=== PATIENT | male | born 1950 | race Caucasian/White ===

== ENCOUNTER 2020-12-23 14:21 | Emergency (ER) | payer MEDICARE ==
[~2020-12-23] VITALS: Ht 177.8 cm; Wt 95.0 kg
[2020-12-23] MEDS ORDERED: LIPITOR40 M1 PO (16:20)
[2020-12-23] MEDS ORDERED: ASPIRIN 81 LOW81 MG PO (16:21)
[2020-12-23] MEDS ORDERED: ASPIRIN 8181 MG PO (16:24)
[2020-12-23] MEDS ORDERED: PERCOCET 5/325M1 TAB PO (19:29)
[2020-12-23 19:40] VITALS: BP 129/64
== END 2020-12-23 19:40 | disposition home or self-care (01) ==
LOC: ED 14:21
PROC: 2W3RX1Z Immobilization of Left Lower Leg using Splint (ICD-10-PCS; principal; 2020-12-23)
DX: S92.002A Unspecified fracture of left calcaneus, initial encounter for closed fracture (principal); I25.2 Old myocardial infarction; W11.XXXA Fall on and from ladder, initial encounter; Y92.009 Unspecified place in unspecified non-institutional (private) residence as the place of occurrence of the external cause